=== PATIENT | female | born 1955 | race African-American/Black ===

== ENCOUNTER 2018-05-09 15:07 | Emergency (ER) | payer SELFPAY ==
[~2018-05-09] VITALS: Ht 175.3 cm; Wt 84.1 kg
[2018-05-09 15:36] VITALS: BP 145/103
[2018-05-09] MEDS ORDERED: AMLO-512 PO (15:45)
[2018-05-09] MEDS ORDERED: LOSA25TA41 PO (15:45)
[2018-05-09] MEDS ORDERED: CLON-570 PO (15:45)
[2018-05-09] MEDS ORDERED: LABE100 PO (15:45)
== END 2018-05-09 17:38 | disposition left against medical advice (07) ==
LOC: EMS 15:09
DX: R10.9 Unspecified abdominal pain (principal); R06.02 Shortness of breath; Z53.21 Procedure and treatment not carried out due to patient leaving prior to being seen by health care provider